=== PATIENT | female | born 1935 | race Hispanic/Latino ===

== ENCOUNTER 2017-01-05 17:56 | Emergency (ER) | payer MEDICARE ==
[2017-01-05 19:07] LABS: Basophils % (Auto) 0.6 % (0.0-1.8); Eosinophils % (Auto) 1.7 % (0.0-4.3); Hematocrit 34.8 % (30.3-42.9); Hemoglobin 11.8 gm/dl (10.1-14.3); Mean Corpuscular HGB Conc 34 % (30-34); Mean Corpuscular Hemoglobin 32 pg (28-32); Mean Corpuscular Volume 94 fl (79-97); Platelet Count 291 K/mm3 (140-440); Red Blood Count 3.71 M/mm3 (3.65-5.03); Red Cell Distribution Width 13.2 % (13.2-15.2); White Blood Count 7.9 K/mm3 (4.5-11.0)
[2017-01-05 19:18] LABS: INR 0.91 (0.87-1.13); Partial Thromboplastin Time 29.9 Sec. (24.2-36.6)
[2017-01-05 19:37] LABS: Anion Gap 20 mmol/L; BUN/Creatinine Ratio 33; Blood Urea Nitrogen 13 mg/dL (7-17); Calcium 9.5 mg/dL (8.4-10.2); Carbon Dioxide 25 mmol/L (22-30); Chloride 92.7 mmol/L (98-107); Glucose 101 mg/dL (65-100); Potassium 4.2 mmol/L (3.6-5.0); Sodium 133 mmol/L (137-145)
--- NOTE | 2017-01-05 19:50 | Cat Scan Report ---
FINAL REPORT PROCEDURE: CT HEAD/BRAIN WO CON TECHNIQUE: Computerized tomography of the head was performed without contrast material. DLP 1075.62 mGy-cm. HISTORY: Neuro deficits \T\lt; 6hrs or sx present upon awakening. COMPARISON: No prior studies are available for comparison. FINDINGS: Skull and scalp: Normal. Paranasal sinuses: Rightward septal deviation. Ventricles and subarachnoid spaces: Normal. Cerebrum: No evidence of hemorrhage, acute infarction or mass. Subtle 5.5 millimeter area of low attenuation in the subcortical white matter of the right frontal lobe (image 25). Subtle periventricular white matter low attenuation. Cerebellum and brainstem: No evidence of hemorrhage, acute infarction or mass. Vasculature: Normal. Comments: None. IMPRESSION: No CT evidence of intracranial hemorrhage. Subtle periventricular white matter low attenuation, likely chronic small vessel ischemic change. More focal area of low attenuation in the right frontal lobe, may represent volume averaging. Also could represent small area of encephalomalacia from prior ischemia/infarction, less likely difficult to completely exclude subtle superimposed acute process such as subtle ischemia/infarction. It would be helpful to directly compare with prior imaging if available. Recommend MRI of the brain for further characterization if there is continued clinical concern and if patient has no contraindication to MRI.
[2017-01-06 01:59] VITALS: BP 162/64
[2017-01-06] MEDS ORDERED: ANTIVERT PO ONE (03:58)
[2017-01-06 04:08] LABS: Bilirubin,Urine NEG (Negative); Blood,Urine MOD (Negative); Ketones,Urine NEG (Negative); Leukocyte Esterase,Urine TR (Negative); Mucus,Urine FEW /HPF; Nitrite,Urine NEG (Negative); Protein,Urine <15 mg/dL mg/dL (Negative); Urobilinogen,Urine < 2.0 mg/dL (<2.0)
--- NOTE | 2017-01-06 04:44 | Emergency Department Report ---
ED Syncope HPI - General Chief Complaint: Dizziness Stated Complaint: DIZZY Source: patient, family ( ) Exam Limitations: no limitations - History of Present Illness Initial Comments: 81 yo female who comes in today due to a syncopal episode. She states that she was at home and noticed that she was extremely dizzy. She also admits to passing out. She denies remembering when she passed out. However, she states that she felt "funny" when it did take place. Dizziness since resolved. Denies any weakness or focal neurologic deficits. Precipitating Factors: Positive: none Loss of Consciousness: brief (seconds) Current Symptoms: other (none) - Related Data Allergies/Adverse Reactions: Allergies No Known Allergies Allergy (Unverified 01/05/17 18:38) Home Medications: Ambulatory Orders Ciprofloxacin HCl [Cipro] 250 mg PO BID #6 tablet 01/06/17 Meclizine [Antivert] 25 mg PO BID PRN #15 tablet 01/06/17 ED Review of Systems ROS: Stated complaint: DIZZY Other details as noted in HPI Constitutional: denies: chills, fever Eyes: denies: eye pain, eye discharge, vision change ENT: denies: ear pain, throat pain Respiratory: denies: cough, shortness of breath, wheezing Cardiovascular: denies: chest pain, palpitations Endocrine: no symptoms reported Gastrointestinal: denies: abdominal pain, nausea, diarrhea Genitourinary: denies: urgency, dysuria, discharge Musculoskeletal: denies: back pain, joint swelling, arthralgia Skin: denies: rash, lesions Neurological: vertigo Psychiatric: denies: anxiety, depression Hematological/Lymphatic: denies: easy bleeding, easy bruising ED Past Medical Hx - Past Medical History Previous Medical History?: Yes Hx Hypertension: Yes Hx GERD: Yes - Medications Home Medications: Home Medications Medication Instructions Recorded Confirmed Last Taken Type Ciprofloxacin HCl [Cipro] 250 mg PO BID #6 tablet 01/06/17 Unknown Rx Meclizine [Antivert] 25 mg PO BID PRN #15 tablet 01/06/17 Unknown Rx ED Physical Exam - General Limitations: No Limitations General appearance: alert, in no apparent distress - Head Head exam: Present: atraumatic, normocephalic - Eye Eye exam: Present: normal appearance - ENT ENT exam: Present: mucous membranes moist - Neck Neck exam: Present: normal inspection - Respiratory Respiratory exam: Present: normal lung sounds bilaterally. Absent: respiratory distress - Cardiovascular Cardiovascular Exam: Present: regular rate, normal rhythm. Absent: systolic murmur, diastolic murmur, rubs, gallop - GI/Abdominal GI/Abdominal exam: Present: soft, normal bowel sounds - Extremities Exam Extremities exam: Present: normal inspection - Back Exam Back exam: Present: normal inspection - Neurological Exam Neurological exam: Present: alert, oriented X3, CN II-XII intact, normal gait - Psychiatric Psychiatric exam: Present: normal affect, normal mood - Skin Skin exam: Present: warm, dry, intact, normal color. Absent: rash ED Course Vital Signs 01/05/17 01/06/17 18:31 01:59 Temperature 98.1 F Pulse Rate 79 80 Respiratory 18 Rate Blood Pressure 151/64 Blood Pressure 162/64 [Left] O2 Sat by Pulse 99 Oximetry - Reevaluation(s) Reevaluation #1: 01/06/17 04:46 Patient states that she has no complaints. Workup unremarkable. ED Medical Decision Making - Lab Data Result diagrams: 01/05/17 18:49 01/05/17 18:49 - Radiology Data CT head-unremarkable per radiology Chest radiograph-unremarkable (read by me) Critical care attestation.: If time is entered above; I have spent that time in minutes in the direct care of this critically ill patient, excluding procedure time. ED Disposition Clinical Impression: Syncope and collapse, Vertigo, UTI (urinary tract infection) Disposition: - TO HOME OR SELFCARE Is pt being admited?: No Does the pt Need Aspirin: No Condition: Stable Instructions: Syncope (ED), Vertigo (ED), Near Syncope (ED), Lightheadedness ( ED), Urinary Tract Infection in Women (ED) Additional Instructions: Take medicines as prescribed. Return to the nearest ED for worsening dizziness , lightheadedness, shortness of breath, chest pain, new onset weakness, or focal neurologic deficits. Prescriptions: Ciprofloxacin HCl [Cipro] 250 mg PO BID #6 tablet Meclizine [Antivert] 25 mg PO BID PRN #15 tablet PRN Reason: Vertigo Referrals: PRIMARY CARE, [Primary Care Provider] - 3-5 Days Time of Disposition: 04:49
--- NOTE | 2017-01-06 09:15 | XRay Report ---
AP CHEST : 01/06/17 CLINICAL: Syncope. COMPARISON:None FINDINGS: Normal heart and pulmonary vessels. The lungs are normally expanded and clear except for a calcified granuloma in the left upper lobe. Small calcified mediastinal and left hilar lymph nodes.. Scoliosis and degenerative changes in the spine. IMPRESSION: No acute cardiopulmonary process.Old granulomatous disease.
== END 2017-01-06 04:58 | disposition home or self-care (01) ==
LOC: ED 17:56
DX: N39.0 Urinary tract infection, site not specified (principal); R55 Syncope and collapse; R42 Dizziness and giddiness; I10 Essential (primary) hypertension; K21.9 Gastro-esophageal reflux disease without esophagitis
CPT/HCPCS: 36415; 70450; 71010; 80048; 81001; 84484; 85025; 85610; 85670; 85730; 93005; 93010